=== PATIENT | female | born 1995 | race Caucasian/White ===

== ENCOUNTER 2018-02-14 17:24 | Emergency (ER) | payer BC ==
[2018-02-14 17:32] VITALS: BP 145/66; PULSE 111; TEMP 98.8; BMI 21.9
--- NOTE | 2018-02-14 17:32 | PDOC ---
Rapid Medical Evaluation Time Seen by Provider: 02/14/18 17:27 Medical Evaluation: Allergies Allergy/AdvReac Type Severity Reaction Status Date / Time No Known Allergies Allergy Verified 09/03/11 21:13 02/14/18 17:27 I have performed a brief in-person evaluation of this patient. The patient presents with a chief complaint of: fever since yesterday. States chills x 1 week at one point with headache and dizziness Pertinent physical exam findings are: NAD even and unlabored breathing no skin rash noted I have ordered the following: labs The patient will proceed o the Ed for further evaluation.
--- NOTE | 2018-02-14 19:33 | PDOC ---
Attending Attestation - HPI HPI: 02/14/18 21:00 The patient is a 22-year-old female, with no past medical history, who presents to the ED with 10 days of intermittent fever and night sweats. The patient works in the [employer] in [email or web address] and they do frequent tick checks. She does report a fever; the highest has been 103 degrees. Last dose of Motrin was at 1 PM. She denies any headache, ear pain, throat pain, throat swelling, vaginal discharge, or rashes. - Physicial Exam PE: 02/14/18 21:05 GENERAL: (+)Clammy. Awake, alert, and fully oriented, in no acute distress. HEAD: No signs of trauma EYES: PERRLA, EOMI, sclera anicteric, conjunctiva clear ENT: Auricles normal inspection, hearing grossly normal, nares patent, oropharynx clear without exudates. Moist mucosa NECK: Normal ROM, supple, no lymphadenopathy, JVD, or masses. No meningeal signs. LUNGS: Breath sounds equal, clear to auscultation bilaterally. No wheezes, and no crackles HEART: (+)Tachycardic. Normal S1 and S2, no murmurs, rubs or gallops ABDOMEN: Soft, nontender, normoactive bowel sounds. No guarding, no rebound. No masses MSK: No CVA tenderness. EXTREMITIES: Normal range of motion, no edema. No clubbing or cyanosis. No cords, erythema, or tenderness NEUROLOGICAL: Cranial nerves II through XII grossly intact. Normal speech, normal gait SKIN: Warm, Dry, normal turgor, no rashes or lesions noted. <Noa Valenzuela - Last Filed: 02/14/18 21:00> - Resident Resident Name: Xiomara Bridges - ED Attending Attestation I have performed the following: I have examined & evaluated the patient, The case was reviewed & discussed with the resident, I agree w/resident's findings & plan, Exceptions are as noted - Medical Decision Making 02/14/18 19:33 I, Dr. Greer Moyer, DO, attest that this document has been prepared under my direction and personally reviewed by me in its entirety. I further attest, that it accurately reflects all work, treatment, procedures and medical decision -making performed by me. 02/14/18 20:35 22yo female with intermittent fevers x 10 days -tmax 103 -night sweats -no tic bites, however mosquito bites -will send labs, malaria smear to eval of babesiosis, erlichiosis -lyme titer cxr ua will monitor and reassess 02/14/18 22:13 pt with uti will start abx cultures and tic born illnesses are pending 02/14/18 22:41 pt given abx earlier for a uti but did not start them pt will take her abx given to her by her PMD 02/14/18 22:41 cxr clear <Greer Moyer - Last Filed: 02/14/18 22:41> Attestations - Attestations Physician Attestation: 02/14/18 21:06 Documentation prepared by Noa Valenzuela, acting as medical billing manager for Greer Moyer DO. <Noa Valenzuela - Last Filed: 02/14/18 21:00>
--- NOTE | 2018-02-14 19:36 | PDOC ---
History of Present Illness - General Chief Complaint: SIRS, Suspected/Possible Stated Complaint: PCP SENT/EVALUATION Time Seen by Provider: 02/14/18 17:27 - History of Present Illness Initial Comments: Mi Murrieta is an otherwise healthy 22yo woman who presents from urgent care today complaining of intermittent fevers and body aches for the past week. She states that she did not realize that she was febrile until taking her temperature at home yesterday, but she has felt extremely cold even when outside in 90 degree weather on and off for about a week. She even felt cold with a blanket while outside the other day. She measured her fever at home to be as high as 103F but appears to change throughout the day. She took some ibuprofen this afternoon prior to presenting for evaluation and does not have a fever now. The only other symptom that Ms Murrieta has noticed is a mild headache that occurs along with her chills. She denies any cough, SOB, congestion, n/v/d/c, urinary symptoms, or rash. 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 She denies any erythema, swelling, open wound, or drainage. On specific questioning, Ms Murrieta does note significant sweating at night that requires changing her sheets and clothes. Past History - Past Medical History Allergies/Adverse Reactions: Allergies Allergy/AdvReac Type Severity Reaction Status Date / Time No Known Allergies Allergy Verified 02/14/18 17:28 Home Medications: Ambulatory Orders Ibuprofen [Advil -] 400 mg PO QID 02/14/18 COPD: No - Immunization History Td Vaccination: Yes Immunization Up to Date: Yes - Suicide/Smoking/Psychosocial Hx Smoking Status: No Smoking History: Never smoked Number of Cigarettes Smoked Daily: 0 Cigars Per Day: 0 Review of Systems - Review of Systems Comments:: General: +Fevers, +chills, +night sweats HEENT: No changes in vision, no changes in hearing, no congestion, no sore throat CV: No chest pain, no palpitations, no LE edema Pulm: No SOB, no cough, no wheezing GI: No nausea or vomiting, no change in bowel habits, no melena : No frequency, no urgency, no dysuria Musc: No back pain, no joint swelling, no recent injury Skin: No rash, no lesions, no erythema Endo: No excessive thirst, no heat/cold intolerance Heme: No unusual bruising or bleeding, no swollen glands Neuro: No syncope, no numbness/tingling, no focal weakness Vasc: No claudication Psych: No recent change in mood, no SI or HI *Physical Exam - Vital Signs Last Vital Signs Temp Pulse Resp BP Pulse Ox 98.8 F 111 H 18 145/66 100 02/14/18 17:31 02/14/18 17:31 02/14/18 17:31 02/14/18 17:31 02/14/18 17:31 - Physical Exam Comments: General: Comfortable, no acute distress HEENT: PERRL, EOMI, MMM, voice normal, normal neck ROM, no LAD Cards: RRR, no murmur appreciated Pulm: Comfortable on room air, clear to auscultation bilaterally Abd: Soft, nontender, nondistended : No CVA tenderness Ext: Atraumatic. No LE edema. ROM intact. Strength 5/5 and equal bilaterally Vasc: Extremities WWP. Palpable radial and pedal pulses bilaterally Neuro: A&Ox3, CN grossly intact, normal speech, motor/sensory grossly intact and symmetric Psych: Mood appropriate to situation ED Treatment Course - LABORATORY CBC & Chemistry Diagram: 02/14/18 20:28 02/14/18 20:28 Medical Decision Making - Medical Decision Making 02/14/18 20:26 Mi Murrieta is an otherwise healthy 22yo who presents with intermittent fevers, chills, and night sweats for the past week. She has no focal associated symptoms other than mild headache along with her chills. - Fever of unknown origin at this point, no clear symptoms - Concern for insect-borne illness given history of working in the [employer] and numerous recent insect bites - CBC, CMP, HCT, UA, coags, blood cultures, CXR, lyme, parasite smear - No fever, temp recheck 98.3, but tachycardic to 110. 1L NS and 1g PO acetaminophen ordered. 02/14/18 21:23 - Completed thorough skin exam including entire scalp. No rashes, lesions, or bites seen. Also verified no inguinal or axillary LAD. Hair noted to be sweaty. - Leukocytosis to 12.6 here from 15 at urgent care this afternoon. 02/14/18 22:13 - UA positive for UTI - Called micro lab - parasite smear and lyme will not be resulted tonight - Discussed results and pending tests with Ms Murrieta. She was prescribed 10 days of antibiotics by her PMD today, already picked up from the pharmacy. Advised to start taking the antibiotics tonight. She will receive a call if any of the parasite or lyme tests are positive. Discussed aggressive treatment of fever and return precautions. Ms Murrieta states understanding and agreement. Seen and discussed with Dr Moyer. *DC/Admit/Observation/Transfer Diagnosis at time of Disposition: Complicated UTI (urinary tract infection) - Discharge Dispostion Disposition: HOME Condition at time of disposition: Good Decision to Admit order: No - Referrals Referrals: Liz Rodriguez MD [Primary Care Provider] - - Patient Instructions Printed Discharge Instructions: DI for Fever (Symptom) -- Adult Additional Instructions: Discharge Instructions: - You were seen in the ED for fevers, body aches, and chills. You were found to have a urinary tract infection (UTI) and prescribed antibiotics. Please continue to take these antibiotics as prescribed until finished. - You have blood tests for several insect-borne parasites and Lyme disease that have not yet resulted. If any of these tests are positive and you need to be treated, you will receive a phone call informing you - Please treat your fever aggressively. You may take ibuprofen (Advil, Motrin) 600mg or acetaminophen (Tylenol) 1000mg. Each may be taken every 6 hours, and you may alternate between them every 3 hours if necessary to control your fever. - Continue to push fluids - Seek medical care if your fevers remain high (over 101), your symptoms do not improve after several days of antibiotics, or you notice any skin rashes. - Continue to carefully check for ticks, unusual bites, or rashes after working outside. - Follow up with your primary physician within the next week. - Post Discharge Activity
[2018-02-14] MEDS ORDERED: SODIUM CHLORIDE 0.9% 500 ML INFUS.BAG IV ONE (19:38)
[2018-02-14] MEDS ORDERED: ACETAMINOPHEN 500 MG TABLET (FP) PO ONE (20:04)
[2018-02-14 20:59] LABS: BASO % 0.2 % (0-2.0); EOS % 0.1 % (0-4.5); HEMATOCRIT 38.2 % (32.4-45.2); HEMOGLOBIN 13.2 GM/dL (10.7-15.3); LYMPH % 14.1 % (8-40); MCH 30.4 pg (25.7-33.7); MCHC 34.4 g/dl (32.0-36.0); MEAN CELL VOLUME 88.2 fl (80-96); MEAN PLT VOLUME 8.1 fl (7.5-11.1); MONO % 7.5 % (3.8-10.2); NEUT % 78.1 % (42.8-82.8); PLATELET COUNT 341 K/MM3 (134-434); RBC 4.33 M/mm3 (3.60-5.2); RDW 12.6 % (11.6-15.6); WHITE BLOOD COUNT 12.6 K/mm3 (4.0-10.0)
[2018-02-14 21:09] LABS: HCG,QUALITATIVE URINE Negative; URINE APPEARANCE SLCLOUDY; URINE BILIRUBIN NEGATIVE (<2.0 mg/dL); URINE COLOR YELLOW; URINE GLUCOSE (UA) NEGATIVE (NEGATIVE); URINE KETONE 1+ (NEGATIVE); URINE NITRITE POSITIVE (NEGATIVE); URINE PROTEIN NEGATIVE (NEGATIVE); URINE UROBILINOGEN NEGATIVE mg/dL (0.2-1.0)
[2018-02-14 21:12] LABS: INR 0.98 (0.83-1.09); PROTHROMBIN TIME (PATIENT) 11.1 SEC (9.7-13.0)
[2018-02-14 21:14] LABS: ACTIVATED PTT 27.5 SECONDS (25.2-36.5)
[2018-02-14 21:23] LABS: URINE LEUK ESTERASE 1+ (NEGATIVE)
[2018-02-14 21:26] LABS: ALBUMIN 3.4 g/dl (3.4-5.0); ALK PHOS 55 U/L (45-117); ANION GAP 11 MMOL/L (8-16); BILIRUBIN,TOTAL 0.5 mg/dL (0.2-1.0); BLOOD UREA NITROGEN 10 mg/dL (7-18); CALCIUM 9.2 mg/dL (8.5-10.1); CHLORIDE 104 mmol/L (98-107); CO2 23 mmol/L (21-32); CREATININE 0.7 mg/dL (0.55-1.02); GLUCOSE,RANDOM 83 mg/dL (74-106); POTASSIUM 4.2 mmol/L (3.5-5.1); SGOT/AST 21 U/L (15-37); SGPT/ALT 24 U/L (12-78); SODIUM 138 mmol/L (136-145); TOT PROT 7.4 g/dl (6.4-8.2)
[2018-02-14 21:27] LABS: EPI CELLS RARE /HPF (FEW); URINE BACTERIA MODERATE /hpf (NONE SEEN); URINE MUCUS RARE
[2018-02-14] MEDS ORDERED: ACETAMINOPHEN 325 MG TABLET (FP) ONE (21:46)
== END 2018-02-14 23:24 | disposition home or self-care (01) ==
LOC: JER 17:24
DX: N39.0 Urinary tract infection, site not specified (principal)
CPT/HCPCS: 36415; 71046-TC-FY; 80053; 81003; 81015; 84703; 85025; 85610; 85730; 86618; 87040; 87207; 99282-25